=== PATIENT | female | born 1945 | race Caucasian/White ===

== ENCOUNTER 2022-11-24 09:30 | Inpatient (IN) | payer MEDICARE ==
[~2022-11-24] VITALS: Ht 157.5 cm; Wt 66.0 kg
[2022-11-24 10:29] LABS: Basophils # (auto) 0 10 ^3/uL (0-0.2); Basophils % (auto) 0.6 % (0.0-2.0); Eosinophils # (auto) 0.1 10 ^3/uL (0-0.8); Eosinophils % (auto) 0.7 % (0.0-7.0); Hematocrit 44.1 % (36.0-46.0); Hemoglobin 14.7 g/dL (12.2-16.2); Lymphocytes % (auto) 23.5 % (10.0-50.0); Mean Corpuscular Hemoglobin 29.1 pg (28.0-32.0); Mean Corpuscular Hgb Conc. 33.4 g/dL (32.0-36.0); Mean Corpuscular Volume 87.2 fL (80.0-100.0); Monocytes # (auto) 0.9 10 ^3/uL (0-1.3); Monocytes % (auto) 10.2 % (0.0-12.0); Neutrophils # (auto) 5.4 10 ^3/uL (1.6-8.6); Red Blood Cells 5.05 10^6/uL (4.0-5.20); Red Cell Distribution Width 14.6 % (11.8-14.3); White Blood Cell 8.4 10^3/uL (4.4-10.8)
[2022-11-24 10:47] LABS: Alanine Aminotransferase 17 U/L (7-40); Albumin 4.1 g/dL (3.2-4.8); Alkaline Phosphatase 75 U/L (46-116); Anion Gap 6 (5-15); Aspartate Aminotransferase 18 U/L (13-40); BUN/Creatinine Ratio 24.7 (10.0-20.0); Bilirubin, Total 0.7 mg/dL (0.2-1.0); Blood Urea Nitrogen 19 mg/dL (9-23); Calcium 9.5 mg/dL (8.5-10.1); Carbon Dioxide 28 mmol/L (20-30); Chloride 110 mmol/L (98-107); Glucose 79 mg/dL (74-106); Potassium 3.8 mmol/L (3.5-5.1); Sodium 144 mmol/L (136-145); Total Protein 6.7 g/dL (5.7-8.2)
[2022-11-24 11:13] LABS: Urine Bacteria FEW /hpf (None Seen); Urine Blood Negative /uL (Negative); Urine Clarity Clear (Clear); Urine Protein, UAD Negative (Negative); Urine Specific Gravity 1.007 (1.001-1.035); Urine Urobilinogen Normal (Negative); Urine WBC 2 /hpf (0 - 5)
[2022-11-24 11:18] LABS: Urine Color Straw (Yellow)
[2022-11-24 14:50] VITALS: PULSE 66; RESP 11; O2SAT 99
[2022-11-24] MEDS ORDERED: cloNIDine HCL 0.1 MG TAB PO ONE (17:15)
[2022-11-24] MEDS ORDERED: hydrALAZINE HCL 20 MG/ML VL IV PRN (18:00)
[2022-11-24 18:37] LABS: INR 1.03 (0.9-1.15); Prothrombin Time 10.8 sec (9.3-11.8)
[2022-11-24 18:57] LABS: Erythrocyte Sedimentation Rate 5 mm/hr (0-20)
[2022-11-24 19:01] LABS: Magnesium 2.1 mg/dL (1.6-2.6)
[2022-11-24 19:02] LABS: Phosphorus 2.8 mg/dL (2.4-5.1)
[2022-11-24 20:00] VITALS: RESP 11; O2SAT 99
[2022-11-24] MEDS: ATORVASTATIN 20 MG TAB PO SCH (23:15)
[2022-11-25] VITALS (7 sets, daily range): BP systolic 116–163; BP diastolic 49–64; PULSE 50–70; RESP 17–22; TEMP 97.8–98.1; O2SAT 95–98
[2022-11-25 06:17] LABS: LDL Cholesterol 80 mg/dL (< 100)
[2022-11-25 06:18] LABS: Cholesterol 154 mg/dL (< 200); HDL Cholesterol 60 mg/dL (40-59)
[2022-11-25 06:31] LABS: Triglycerides 44 mg/dL (< 150)
[2022-11-25] MEDS ORDERED: ADENOSINE 54 MG in GIVE UN-DILUTED 0 ML IV ONE (10:00)
[2022-11-25] MEDS: LOSARTAN POTASSIUM 25 MG TAB PO SCH (10:14)
[2022-11-25] MEDS: ASPirin 81 mg TAB PO SCH (10:14)
[2022-11-25] MEDS ORDERED: ZOLPIDEM TARTRATE 5 MG TAB PO PRN (13:15)
[2022-11-25] MEDS ORDERED: ONDANSETRON HCL 4 MG/2 ML VIAL IV PRN (13:15)
[2022-11-25] MEDS ORDERED: ACETAMINOPHEN 325 MG TAB PO PRN (13:15)
[2022-11-25] MEDS: ATORVASTATIN 20 MG TAB PO SCH (21:12)
[2022-11-26 05:00] VITALS: BP 143/65; PULSE 60; RESP 18; TEMP 98.1; O2SAT 97
[2022-11-26 05:07] LABS: RPR Non Reactive (Non Reactive)
[2022-11-26 08:00] VITALS: PULSE 62; RESP 17; O2SAT 97
[2022-11-26 09:06] VITALS: BP 133/85; PULSE 68; RESP 20; TEMP 98.4; O2SAT 97
[2022-11-26] MEDS ORDERED: ASPI-325 PO (11:03)
[2022-11-26] MEDS ORDERED: LOS25T PO (11:03)
[2022-11-26 11:20] VITALS: BP 151/57
[2022-11-26] MEDS: ASPirin 81 mg TAB PO SCH (11:30)
[2022-11-26] MEDS: LOSARTAN POTASSIUM 25 MG TAB PO SCH (11:31)
== END 2022-11-26 12:34 | disposition home or self-care (01) | DRG 305 ==
LOC: ER 09:30 → TELE 17:13 → TELE-EAST 11-25 10:02
PROVIDERS: ADMIT Nurse Practitioner Family; ATTEND Internal Medicine Geriatric Medicine
DX: I16.1 Hypertensive emergency (principal); I24.9 Acute ischemic heart disease, unspecified; L40.9 Psoriasis, unspecified; I10 Essential (primary) hypertension; Z82.3 Family history of stroke; Z82.49 Family history of ischemic heart disease and other diseases of the circulatory system; Z82.5 Family history of asthma and other chronic lower respiratory diseases; Z87.442 Personal history of urinary calculi; Z90.710 Acquired absence of both cervix and uterus
CPT/HCPCS: 36415; 70450; 70551; 71045; 78452; 80053; 80061; 81001; 83036; 83735; 84100; 84443; 84484; 85025; 85379; 85610; 85652; 86592; 92610; 93005; 93017; 93306; 93886; 97110; 97116; 97163; 97530; G0378; J0153

== ENCOUNTER 2024-08-22 09:38 | Emergency (ER) | payer MEDICARE ==
[~2024-08-22] VITALS: Ht 162.6 cm; Wt 61.5 kg
[~2024-08-22 09:38] MED LIST: ASPI-325 PO; LOS25T PO
--- NOTE | 2024-08-22 10:23 | ED.PDOC ---
History of Present Illness HPI Comments 79-year-old female brought by ambulance because she fell landing on left shoulder causing severe 10/10 pain. Denies any symptoms prior to the fall. She tripped over a rock and landed on her left shoulder in a parking lot and a [employer] store nearby. History of hypotension. Denies use of any blood thinners. Denies loss of consciousness. Chief Complaint: Upper Extremity Time Seen by MD: 09:49 Primary Care Provider: out of area. Reviewed Notes: Nurses Notes, Medications, Allergies Allergies: Coded Allergies: NO KNOWN ALLERGIES (Unverified , 11/24/22) Home Meds Active Scripts Aspirin (Aspirin Low Dose) 81 Mg Tab, 81 MG PO DAILY for 100 Days, #100 TAB 3 Refills Prov:TUCKER BLUM MD 11/26/22 Losartan Potassium (Losartan Potassium) 25 Mg Tab, 25 MG PO DAILY for 30 Days, #30 TAB 5 Refills Prov:TUCKER BLUM MD 11/26/22 Information Source: Patient, Emergency Med Personnel Mode of Arrival: EMS Severity: Moderate Timing: Minutes Duration: Since onset Past Medical History PAST MEDICAL HISTORY: HTN Surgical History: Unknown FOOD STYLIST History: Denies all FOOD STYLIST Hx Family History Family History: Unknown Social History Smoker: Non-Smoker Alcohol: Denies ETOH Use Drugs: Denies Drug Use Lives In: Home Constitutional: denies: chills, diaphoresis, fatigue, fever, malaise, sweats, weakness, others EENTM: denies: blurred vision, double vision, ear bleeding, ear discharge, ear drainage, ear pain, ear ringing, eye pain, eye redness, hearing loss, mouth pain, mouth swelling, nasal discharge, nose bleeding, nose congestion, nose pain, photophobia, tearing, throat pain, throat swelling, voice changes, others Respiratory: denies: cough, hemoptysis, orthopnea, SOB at rest, shortness of b reath, SOB with excertion, stridor, wheezing, others Cardiovascular: denies: chest pain, dizzy spells, diaphoresis, Dyspnea on exertion, edema, irregular heart beat, left arm pain, lightheadedness, palpitations, PND, syncope, others Gastrointestinal: denies: abdomen distended, abdominal pain, blood streaked bowels, constipated, diarrhea, dysphagia, difficulty swallowing, hematemesis, melena, nausea, poor appetite, poor fluid intake, rectal bleeding, rectal pain, vomiting, others Genitourinary: denies: abnormal vagina bleeding, burning, dyspareunia, dysuria, flank pain, frequency, hematuria, incontinence, pain, , vagina discharge, urgency, others Neurological: denies: dizziness, fainting, headache, left sided numbness, left sided weakness, numbness, paresthesia, pre-existing deficit, right sided numbness, right sided weakness, seizure, speech problems, tingling, tremors, weakness, others Musculoskeletal: reports: joint pain (Left shoulder); denies: back pain, gout, joint swelling, muscle pain, muscle stiffness, neck pain, others Integumetry: denies: bruises, change in color, change in hair/nails, dryness, laceration, lesions, lumps, rash, wounds, others Allergic/Immunocompromised: denies: Difficulty Healing, Frequent Infections, Hives, Itching, others Hematologic/Lymphatic: denies: anemia, blood clots, easy bleeding, easy bruising, swollen glands, others Endocrine: denies: excessive hunger, excessive sweating, excessive thirst, excessive urination, flushing, intolerance to cold, intolerance to heat, unexplained weight gain, unexplained weight loss, others Psychiatric: denies: anxiety, bipolar disorder, depression, hopeless, panic disorder, schizophrenia, sleepless, suicidal, others Physical Exam General Appearance: Moderate Distress HEENT: Normal ENT Inspection, Pharynx Normal, TMs Normal Neck: Full Range of Motion, Non-Tender, Normal, Normal Inspection Respiratory: Chest Non-Tender, Lungs Clear, No Accessory Muscle Use, No Respiratory Distress, Normal Breath Sounds Cardiovascular: No Edema, No JVD, No Murmur, No Gallop, Normal Peripheral Pulses, Regular Rate/Rhythm Breast Exam: Deferred Gastrointestinal: No Organomegaly, Non Tender, No Pulsatile Mass, Normal Bowel Sounds, Soft Genitalia: Deferred Pelvic: Deferred Rectal: Deferred Extremities: Decreased range of motion (Left shoulder), No calf tenderness, Normal capillary refill, Non-tender, No pedal edema Musculoskeletal : Apperance: Normal Neurologic: Alert, 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 Was a procedure done?: Yes Sedation Sedation?: Yes Informed consent obtained: Yes Sedation start time: 12:05 Sedation end time: 12:20 Sedation total time: 15min Differential Dx Considerations may include: Shoulder dislocation Musculoskeletal pain X-Ray, Labs, Meds, VS Vital Signs Date Time Temp Pulse Resp B/P (MAP) Pulse Ox O2 Delivery O2 Flow Rate FiO2 08/22/24 11:07 98.0 73 20 167/67 (100) 98 98.0 08/22/24 09:44 98.0 69 22 148/58 (88) 98 98.0 Current Medications Medications (Trade) Dose Ordered Sig/Gabriela Route Start Time Stop Time Status Last Admin Etomidate 10 mg ONCE ONCE IV 08/22/24 10:30 08/22/24 10:31 DC 08/22/24 11:52 [place] [id number] Ph: [phone] DIAGNOSTIC IMAGING Diagnostic Imaging Report : [id number] Signed PATIENT: JANES GRACE ACCT: [id number] UNIT: [id number] : 1945 LOC: ER ROOM / BED: / AGE / SEX: 79 / F ADM STATUS: REG ER SERVICE [id number] ORDERING PHYSICIAN: HALLIE BOYLE MD PROCEDURE(s): LSHD2 - L SHOULDER 2+ VIEW XRAY REASON: left shoulder pain ORDER NUMBER(s): [id number], ACCESSION NUMBER(s): [id number] CLINICAL INDICATION: left shoulder pain TECHNIQUE: 2 radiographic views of the left shoulder were obtained. Comparison: None FINDINGS/IMPRESSION: Inferior dislocation of the left glenohumeral joint. Suggestion of a possible hill-Sachs deformity. ATED BY: REAL SHRESTHA MD DICTATED DATE/TIME: 08/22/24 1024 SIGNED BY: REAL SHRESTHA MD SIGNED DATE/TIME: 08/22/24 1024 CC: Patient alert. Complaining of left shoulder pain. Status post fall. Vitals stable. Deformity of the left shoulder. X-ray does show dislocation. Was given pain medication. Reduced. Placed in a sling. Explained to the patient. Was told to follow up with her primary care physician. Was told to come back if there is any problem. Time of 1ST Reevaluation: 10:21 Reevaluation 1ST: Unchanged Time of 2ND Reevaluation: 12:11 Reevaluation 2ND: Improved Patient Education/Counseling: Diagnosis, Treatment, Prognosis, Need For Follow Up Family Education/Counseling: No Family Present SEPSIS Sepsis Screen Date sepsis recognized/suspect: Aug 22, 2024 Time Sepsis recognized/suspect: 939 Recent Procedure: No On Antibiotic Therapy: No Respiratory Rate >20: Yes Heart Rate >90: No Temp<36 C (96.8 F) or >38.3 C: No SBP <90 or MAP <65 mmHG: No New Acute Mental Status Change: No Is the patient on CPAP, BIPAP,: No Physician Orders L Shoulder 2+ View Xray (08/22/24 09:52) Vital Signs Date Time Temp Pulse Resp B/P (MAP) Pulse Ox O2 Delivery O2 Flow Rate FiO2 08/22/24 11:07 98.0 73 20 167/67 (100) 98 98.0 08/22/24 09:44 98.0 69 22 148/58 (88) 98 98.0 Medications Medications Dose Ordered Sig/Gabriela Route Start Time Stop Time Status Last Admin Dose Admin Etomidate 10 mg ONCE ONCE IV 08/22/24 10:30 08/22/24 10:31 DC 08/22/24 11:52 Departure 1 Departure Time of Disposition: 10:23 Impression: Primary Impression: Shoulder dislocation Qualified Codes: S43.005A - Unspecified dislocation of left shoulder joint, initial encounter Disposition: 01 HOME / SELF CARE / HOMELESS Condition: Good Discharged With: Self Critical Care Note Critical Care Time?: Yes (45 min-critical care time only) Critical care comment: Dislocated severe pain conscious sedation Stability Stability form required: No Heart Score Heart Score: Heart Score Response (Comments) Value History N/A 0 EKG N/A 0 Age N/A 0 Risk Factors N/A 0 Troponin N/A 0 Total 0 I personally scribed for HALLIE BOYLE MD ([email or web address]) on 08/22/24 at 12:12. Electronically submitted by Nathalie Mon ([email or web address]). HALLIE BOYLE MD Aug 22, 2024 10:23
--- NOTE | 2024-08-22 10:26 | DVH ---
CLINICAL INDICATION: left shoulder pain TECHNIQUE: 2 radiographic views of the left shoulder were obtained. Comparison: None FINDINGS/IMPRESSION: Inferior dislocation of the left glenohumeral joint. Suggestion of a possible hill-Sachs deformity.
[2024-08-22 11:07] VITALS: TEMP 98
[2024-08-22] MEDS: ETOMIDATE (2MG/ML) 20ML VIAL IV ONE (11:52)
[2024-08-22] MEDS: HYDROcodone-ACET 10/325MG TAB PO ONE (12:45)
--- NOTE | 2024-08-22 12:53 | DVH ---
CLINICAL INDICATION: Postreduction TECHNIQUE: XY L SHOULDER 1V XRAY Comparison: XY L SHOULDER 2+ VIEW XRAY on DOS: 08/22/24 FINDINGS/IMPRESSION: : There is no evidence of acute fracture or dislocation. Soft tissues are unremarkable.
[2024-08-22 14:00] VITALS: BP 142/70; PULSE 79; RESP 20; O2SAT 95
== END 2024-08-22 15:03 | disposition home or self-care (01) ==
LOC: EDBD 09:38 → ER 09:38
DX: S43.085A Other dislocation of left shoulder joint, initial encounter (principal); I10 Essential (primary) hypertension; Z79.82 Long term (current) use of aspirin; Z79.899 Other long term (current) drug therapy; W01.0XXA Fall on same level from slipping, tripping and stumbling without subsequent striking against object, initial encounter; Y93.89 Activity, other specified; Y92.89 Other specified places as the place of occurrence of the external cause; Y99.8 Other external cause status
CPT/HCPCS: 23650; 73020; 73030; 99152